=== PATIENT | female | born 1960 | race Caucasian/White ===

== ENCOUNTER 2017-05-31 11:10 | Inpatient (IN) | payer BC ==
[2017-05-31] MEDS ORDERED: ACETAMINOPHEN 325 MG TAB PO (11:30)
[2017-05-31] MEDS ORDERED: ONDANSETRON 4 MG INJ IV (11:30)
[2017-05-31 13:32] LABS: CREATINE KINASE 60 IU/L (23-200)
[2017-05-31 13:32] LABS: MAGNESIUM 1.9 mg/dl (1.7-2.5)
[2017-05-31 14:03] LABS: CK INDEX 6.5; CK-MB 3.92 ng/ml (0.0-2.4)
[2017-05-31] MEDS: LEVOFLOXACIN 500MG/D5W (PMX) 100 ML IVPB (15:00)
[2017-05-31] MEDS: metroNIDAZOLE 500 MG/NS (PMX) 100 ML IVPB (15:09)
[2017-05-31] MEDS ORDERED: DIPHENHYDRAMINE 50 MG INJ (17:43)
[2017-05-31] MEDS ORDERED: DIPHENHYDRAMINE 50 MG INJ IV (18:00)
[2017-06-01] MEDS: ALBUTEROL 0.083% (NEB) 2.5 MG/3 ML AMP HHN ×3 (12:00→19:38)
[2017-06-01] MEDS ORDERED: ALBUTEROL 0.083% (NEB) 2.5 MG/3 ML AMP HHN (12:00)
[2017-06-01] MEDS: LEVOFLOXACIN 500MG/D5W (PMX) 100 ML IVPB (13:13)
[2017-06-01 13:24] LABS: CREATINE KINASE 34 IU/L (23-200)
[2017-06-01 13:24] LABS: PHOSPHORUS 1.9 mg/dl (2.5-4.9)
[2017-06-01 13:33] LABS: CK INDEX 5.9; TROPONIN-I 0.026 ng/ml (0.00-0.12)
[2017-06-01] MEDS: metroNIDAZOLE 500 MG/NS (PMX) 100 ML IVPB ×2 (14:55→21:16)
[2017-06-01] MEDS: FUROSEMIDE 20 MG INJ IV (18:28)
[2017-06-02] MEDS: ALBUTEROL 0.083% (NEB) 2.5 MG/3 ML AMP HHN ×4 (01:24→19:31)
[2017-06-02] MEDS: metroNIDAZOLE 500 MG/NS (PMX) 100 ML IVPB ×3 (05:47→21:27)
[2017-06-02 06:08] LABS: ADD MAN DIFF? NO
[2017-06-02 06:19] LABS: BASOPHILS % 0.6 % (0.0-2.0); EOSINOPHILS # 0.1 10^3/ul (0.0-0.5); EOSINOPHILS % 1.4 % (0.0-7.0); HEMATOCRIT 38.1 % (37.0-47.0); HEMOGLOBIN 12.3 g/dl (12.0-16.0); LYMPHOCYTES % 19.8 % (15.0-51.0); MEAN CORPUSCULAR HGB CONC 32.3 g/dl (32.0-37.0); MEAN CORPUSCULAR VOLUME 89.9 fl (82.0-101.0); MEAN PLATELET VOLUME 10.6 fl (7.4-10.4); MONOCYTE # 0.4 10^3/ul (0.3-0.9); MONOCYTES % 8.9 % (0.0-11.0); NEUTROPHIL # 3.3 10^3/ul (1.6-7.5); NEUTROPHILS % 68.5 % (39.0-77.0); PLATELET COUNT 176 10^3/UL (140-415); RED BLOOD COUNT 4.24 10^6/ul (4.20-5.40); RED CELL DISTRIBUTION WIDTH 14.8 % (11.5-14.5)
[2017-06-02 06:19] LABS: WHITE BLOOD COUNT 4.9 10^3/ul (4.8-10.8)
[2017-06-02 06:45] LABS: ALANINE AMINOTRANSFERASE 48 IU/L (13-69); ALBUMIN 3.3 g/dl (3.3-4.9); ALBUMIN/GLOBULIN RATIO 1.26; ALKALINE PHOSPHATASE 158 IU/L (42-121); ANION GAP 10 (8-16); ASPARTATE AMINO TRANSFERASE 28 IU/L (15-46); BILIRUBIN,INDIRECT 0.1 mg/dl (0-1.1); BILIRUBIN,TOTAL 0.1 mg/dl (0.2-1.3); BLOOD UREA NITROGEN 11 mg/dl (7-20); CALCIUM 10.8 mg/dl (8.4-10.2); CARBON DIOXIDE 28 mmol/L (21-31); CHLORIDE 107 mmol/L (97-110); CREATININE 0.74 mg/dl (0.44-1.00); GLUCOSE 100 mg/dl (70-220); POTASSIUM 3.3 mmol/L (3.5-5.1); SODIUM 142 mmol/L (135-144); TOTAL PROTEIN 5.9 g/dl (6.1-8.1)
[2017-06-02] MEDS: LEVOFLOXACIN 500MG/D5W (PMX) 100 ML IVPB (12:06)
[2017-06-02] MEDS: POTASSIUM CHLORIDE (SR) 20 MEQ TAB PO (12:06)
[2017-06-02] MEDS ORDERED: VITAMIN A & D 5 GM OINT PACKET TOP (12:55)
[2017-06-03] MEDS ORDERED: VITAMIN A & D 5 GM OINT PACKET TOP (00:52)
[2017-06-03] MEDS: ALBUTEROL 0.083% (NEB) 2.5 MG/3 ML AMP HHN ×2 (01:38→08:00)
[2017-06-03] MEDS: metroNIDAZOLE 500 MG/NS (PMX) 100 ML IVPB ×3 (05:29→21:32)
[2017-06-03 05:46] LABS: ADD MAN DIFF? NO
[2017-06-03 05:59] LABS: WHITE BLOOD COUNT 5.3 10^3/ul (4.8-10.8)
[2017-06-03 05:59] LABS: BASOPHILS % 0.8 % (0.0-2.0); EOSINOPHILS # 0.1 10^3/ul (0.0-0.5); EOSINOPHILS % 1.5 % (0.0-7.0); HEMOGLOBIN 13.4 g/dl (12.0-16.0); LYMPHOCYTES % 19.3 % (15.0-51.0); MEAN CORPUSCULAR HEMOGLOBIN 29.3 pg (29.0-33.0); MEAN CORPUSCULAR HGB CONC 33.5 g/dl (32.0-37.0); MEAN CORPUSCULAR VOLUME 87.5 fl (82.0-101.0); MEAN PLATELET VOLUME 10.3 fl (7.4-10.4); MONOCYTE # 0.4 10^3/ul (0.3-0.9); MONOCYTES % 7.2 % (0.0-11.0); NEUTROPHIL # 3.7 10^3/ul (1.6-7.5); NEUTROPHILS % 70.3 % (39.0-77.0); PLATELET COUNT 196 10^3/UL (140-415); RED BLOOD COUNT 4.57 10^6/ul (4.20-5.40); RED CELL DISTRIBUTION WIDTH 14.8 % (11.5-14.5)
[2017-06-03 06:20] LABS: ALANINE AMINOTRANSFERASE 39 IU/L (13-69); ALBUMIN 3.4 g/dl (3.3-4.9); ALBUMIN/GLOBULIN RATIO 1.09; ALKALINE PHOSPHATASE 165 IU/L (42-121); ANION GAP 11 (8-16); ASPARTATE AMINO TRANSFERASE 21 IU/L (15-46); BILIRUBIN,INDIRECT 0.2 mg/dl (0-1.1); BILIRUBIN,TOTAL 0.2 mg/dl (0.2-1.3); BLOOD UREA NITROGEN 6 mg/dl (7-20); CALCIUM 11.5 mg/dl (8.4-10.2); CARBON DIOXIDE 25 mmol/L (21-31); CHLORIDE 109 mmol/L (97-110); CREATININE 0.68 mg/dl (0.44-1.00); GLUCOSE 99 mg/dl (70-220); POTASSIUM 3.8 mmol/L (3.5-5.1); SODIUM 141 mmol/L (135-144); TOTAL PROTEIN 6.5 g/dl (6.1-8.1)
[2017-06-03] MEDS: LEVOFLOXACIN 500MG/D5W (PMX) 100 ML IVPB (12:24)
[2017-06-04] MEDS: metroNIDAZOLE 500 MG/NS (PMX) 100 ML IVPB ×3 (05:52→22:11)
[2017-06-04] MEDS: LEVOFLOXACIN 500MG/D5W (PMX) 100 ML IVPB (12:31)
[2017-06-05] MEDS: metroNIDAZOLE 500 MG/NS (PMX) 100 ML IVPB (06:18)
[2017-06-05 06:28] LABS: ADD MAN DIFF? NO
[2017-06-05 06:34] LABS: WHITE BLOOD COUNT 5.1 10^3/ul (4.8-10.8)
[2017-06-05 06:34] LABS: BASOPHIL # 0.1 10^3/ul (0.0-0.1); EOSINOPHILS # 0.1 10^3/ul (0.0-0.5); EOSINOPHILS % 2.4 % (0.0-7.0); HEMATOCRIT 42.8 % (37.0-47.0); HEMOGLOBIN 14.3 g/dl (12.0-16.0); LYMPHOCYTES # 1.3 10^3/ul (0.8-2.9); LYMPHOCYTES % 24.7 % (15.0-51.0); MEAN CORPUSCULAR HGB CONC 33.4 g/dl (32.0-37.0); MEAN CORPUSCULAR VOLUME 86.8 fl (82.0-101.0); MEAN PLATELET VOLUME 10.3 fl (7.4-10.4); MONOCYTE # 0.4 10^3/ul (0.3-0.9); MONOCYTES % 7.9 % (0.0-11.0); NEUTROPHIL # 3.1 10^3/ul (1.6-7.5); PLATELET COUNT 224 10^3/UL (140-415); RED BLOOD COUNT 4.93 10^6/ul (4.20-5.40); RED CELL DISTRIBUTION WIDTH 14.6 % (11.5-14.5)
[2017-06-05 06:59] LABS: ALANINE AMINOTRANSFERASE 33 IU/L (13-69); ALBUMIN 3.7 g/dl (3.3-4.9); ALBUMIN/GLOBULIN RATIO 1.37; ALKALINE PHOSPHATASE 141 IU/L (42-121); ANION GAP 15 (8-16); ASPARTATE AMINO TRANSFERASE 22 IU/L (15-46); BILIRUBIN,INDIRECT 0.1 mg/dl (0-1.1); BILIRUBIN,TOTAL 0.1 mg/dl (0.2-1.3); BLOOD UREA NITROGEN 13 mg/dl (7-20); CALCIUM 11.1 mg/dl (8.4-10.2); CARBON DIOXIDE 23 mmol/L (21-31); CHLORIDE 109 mmol/L (97-110); CREATININE 0.73 mg/dl (0.44-1.00); GLUCOSE 93 mg/dl (70-220); POTASSIUM 3.6 mmol/L (3.5-5.1); SODIUM 143 mmol/L (135-144); TOTAL PROTEIN 6.4 g/dl (6.1-8.1)
[2017-06-06 17:01] LABS: PTH CALCIUM 10.8 mg/dL (8.6-10.4)
[2017-06-07 07:32] LABS: PTH INTACT 124 pg/mL (14-64)
[2017-06-08 09:13] LABS: ADD MAN DIFF? NO
[2017-06-08 09:17] LABS: WHITE BLOOD COUNT 4.5 10^3/ul (4.8-10.8)
[2017-06-08 09:17] LABS: BASOPHILS % 0.9 % (0.0-2.0); EOSINOPHILS # 0.2 10^3/ul (0.0-0.5); EOSINOPHILS % 3.8 % (0.0-7.0); HEMATOCRIT 41.6 % (37.0-47.0); HEMOGLOBIN 13.6 g/dl (12.0-16.0); LYMPHOCYTES # 1.3 10^3/ul (0.8-2.9); LYMPHOCYTES % 29.2 % (15.0-51.0); MEAN CORPUSCULAR HEMOGLOBIN 28.9 pg (29.0-33.0); MEAN CORPUSCULAR HGB CONC 32.7 g/dl (32.0-37.0); MEAN CORPUSCULAR VOLUME 88.3 fl (82.0-101.0); MEAN PLATELET VOLUME 10.2 fl (7.4-10.4); MONOCYTE # 0.4 10^3/ul (0.3-0.9); MONOCYTES % 8.9 % (0.0-11.0); NEUTROPHIL # 2.5 10^3/ul (1.6-7.5); NEUTROPHILS % 55.9 % (39.0-77.0); PLATELET COUNT 230 10^3/UL (140-415); RED BLOOD COUNT 4.71 10^6/ul (4.20-5.40); RED CELL DISTRIBUTION WIDTH 14.4 % (11.5-14.5)
[2017-06-08 09:47] LABS: PHOSPHORUS 2.6 mg/dl (2.5-4.9)
[2017-06-08 09:47] LABS: ANION GAP 13 (8-16); BLOOD UREA NITROGEN 15 mg/dl (7-20); CALCIUM 10.8 mg/dl (8.4-10.2); CARBON DIOXIDE 27 mmol/L (21-31); CHLORIDE 109 mmol/L (97-110); CREATININE 0.68 mg/dl (0.44-1.00); GLUCOSE 122 mg/dl (70-220); MAGNESIUM 2.1 mg/dl (1.7-2.5); POTASSIUM 4.6 mmol/L (3.5-5.1); SODIUM 144 mmol/L (135-144)
[2017-06-08 14:17] LABS: IONIZED CALCIUM 1.6 mmol/L (1.1-1.4)
[2017-06-08 14:51] LABS: HEPATITIS B SURFACE ANTIGEN NEGATIVE (NEGATIVE)
[2017-06-08 15:08] LABS: HEPATITIS C VIRAL ANTIBODY NEGATIVE (NEGATIVE)
[2017-06-08 15:09] LABS: HEPATITIS B SURFACE ANTIBODY NEGATIVE (NEGATIVE)
[2017-06-10] MEDS: LORAZEPAM 2 MG INJ IV (20:51)
[2017-06-11 09:48] LABS: AMPHETAMINE/METHAMPHETAMINE Negative (NEGATIVE); BARBITURATES Negative (NEGATIVE); BENZODIAZEPINES Negative (NEGATIVE); CANNABINOIDS Negative (NEGATIVE); COCAINE Negative (NEGATIVE); OPIATES Negative (NEGATIVE)
[2017-06-11] MEDS: ERGOCALCIFEROL (8000 UNITS/ML PO SYG) PO (09:57)
[2017-06-11] MEDS ORDERED: EPINEPHrine 1 MG INJ (10:18)
[2017-06-11] MEDS ORDERED: hydrALAzine 20 MG INJ IV (10:30)
[2017-06-11] MEDS ORDERED: LABETALOL HCL 20MG INJ IV (10:30)
[2017-06-11] MEDS ORDERED: METOCLOPRAMIDE 10 MG INJ IV (10:30)
[2017-06-11] MEDS ORDERED: FENTAnyl 50 MCG/ML VIAL IV ×3 (10:30)
[2017-06-11] MEDS ORDERED: OXYCODONE/ACETAMINOPHEN (5/325) TAB PO ×2 (10:30)
[2017-06-11] MEDS ORDERED: ONDANSETRON 4 MG INJ IV (10:30)
[2017-06-11] MEDS ORDERED: EPHEDrine SULFATE 50 MG/5 ML SYG IV (10:30)
[2017-06-11] MEDS ORDERED: ALBUTEROL 0.083% (NEB) 2.5 MG/3 ML AMP HHN (10:30)
[2017-06-11] MEDS ORDERED: DIPHENHYDRAMINE 50 MG INJ IV (10:30)
[2017-06-11] MEDS ORDERED: MIDAZOLAM 1 MG/ML 2 ML INJ IV (10:30)
[2017-06-11] MEDS ORDERED: MEPERIDINE 25 MG INJ IV (10:30)
[2017-06-11] MEDS ORDERED: HYDROmorphONE (0.2 MG/ML) 10ML SYG IV ×2 (10:30)
[2017-06-11] MEDS ORDERED: KETOROLAC 30 MG INJ IV (10:30)
[2017-06-11 11:00] LABS: ABNORMAL IP MESSAGE 1; HEMATOCRIT 47.9 % (37.0-47.0); HEMOGLOBIN 15.1 g/dl (12.0-16.0); MEAN CORPUSCULAR HEMOGLOBIN 28.2 pg (29.0-33.0); MEAN CORPUSCULAR HGB CONC 31.5 g/dl (32.0-37.0); MEAN CORPUSCULAR VOLUME 89.5 fl (82.0-101.0); MEAN PLATELET VOLUME 11.6 fl (7.4-10.4); RED BLOOD COUNT 5.35 10^6/ul (4.20-5.40); RED CELL DISTRIBUTION WIDTH 14.5 % (11.5-14.5)
[2017-06-11 11:00] LABS: WHITE BLOOD COUNT 5.8 10^3/ul (4.8-10.8)
[2017-06-11] MEDS ORDERED: ROCURONIUM 50 MG INJ (11:01)
[2017-06-11] MEDS ORDERED: LIDOCAINE 2% (SDV) 5 ML INJ (11:01)
[2017-06-11] MEDS ORDERED: PROPOFOL 20 ML (11:01)
[2017-06-11 11:02] LABS: ADD MAN DIFF? YES; POSITIVE DIFF @See below
[2017-06-11] MEDS: LIDOCAINE 1%/EPI 30 ML INJ (11:16)
[2017-06-11 11:19] LABS: INR 0.89; PARTIAL THROMBOPLASTIN TIME 22.7 Sec (25.0-35.0); PROTIME 12.1 Sec (11.9-14.9); PT RATIO 0.9
[2017-06-11 11:22] LABS: ANION GAP 17 (8-16); BLOOD UREA NITROGEN 16 mg/dl (7-20); CALCIUM 11.6 mg/dl (8.4-10.2); CARBON DIOXIDE 28 mmol/L (21-31); CHLORIDE 111 mmol/L (97-110); CREATININE 0.66 mg/dl (0.44-1.00); GLUCOSE 88 mg/dl (70-220); POTASSIUM 5.5 mmol/L (3.5-5.1); SODIUM 150 mmol/L (135-144)
[2017-06-11] MEDS ORDERED: ONDANSETRON 4 MG INJ (11:27)
[2017-06-11] MEDS ORDERED: DEXAMETHASONE 4 MG/ML 1 ML INJ (11:27)
[2017-06-11 11:34] LABS: BASOPHIL # 0.1 10^3/ul (0.0-0.1); EOSINOPHILS # 0.2 10^3/ul (0.0-0.5); EOSINOPHILS % 3.4 % (0.0-7.0); LYMPHOCYTES # 1.4 10^3/ul (0.8-2.9); LYMPHOCYTES % 24.4 % (15.0-51.0); MONOCYTE # 0.3 10^3/ul (0.3-0.9); MONOCYTES % 5.6 % (0.0-11.0); NEUTROPHIL # 3.8 10^3/ul (1.6-7.5); NEUTROPHILS % 64.7 % (39.0-77.0)
[2017-06-11] MEDS ORDERED: SUGAMMADEX SODIUM 200 MG/2 ML VIAL IV (11:55)
[2017-06-11] MEDS: HYDROmorphONE (0.2 MG/ML) 10ML SYG IV (12:22)
[2017-06-11 13:59] LABS: PLATELET COUNT 134 10^3/UL (140-415)
[2017-06-11 17:05] LABS: CALCIUM 11.2 mg/dl (8.4-10.2)
[2017-06-11] MEDS: HYDROCODONE/APAP (5/325) TAB PO (18:51)
[2017-06-12] MEDS: HYDROCODONE/APAP (5/325) TAB PO ×3 (00:51→21:28)
[2017-06-12 00:59] LABS: CALCIUM 10.9 mg/dl (8.4-10.2)
[2017-06-12 06:04] LABS: ADD MAN DIFF? NO
[2017-06-12 06:05] LABS: ABNORMAL IP MESSAGE 1; BASOPHILS % 0.1 % (0.0-2.0); HEMATOCRIT 41.5 % (37.0-47.0); HEMOGLOBIN 13.4 g/dl (12.0-16.0); LYMPHOCYTES # 0.5 10^3/ul (0.8-2.9); MEAN CORPUSCULAR HEMOGLOBIN 28.9 pg (29.0-33.0); MEAN CORPUSCULAR HGB CONC 32.3 g/dl (32.0-37.0); MEAN CORPUSCULAR VOLUME 89.6 fl (82.0-101.0); MEAN PLATELET VOLUME 10.3 fl (7.4-10.4); MONOCYTE # 0.2 10^3/ul (0.3-0.9); MONOCYTES % 2.8 % (0.0-11.0); NEUTROPHILS % 90.8 % (39.0-77.0); PLATELET COUNT 327 10^3/UL (140-415); RED BLOOD COUNT 4.63 10^6/ul (4.20-5.40); RED CELL DISTRIBUTION WIDTH 14.4 % (11.5-14.5)
[2017-06-12 06:05] LABS: WHITE BLOOD COUNT 7.7 10^3/ul (4.8-10.8)
[2017-06-12 06:43] LABS: POSITIVE DIFF @See below
[2017-06-12 07:05] LABS: MAGNESIUM 2.1 mg/dl (1.7-2.5); PHOSPHORUS 3.3 mg/dl (2.5-4.9)
[2017-06-12 07:15] LABS: ALANINE AMINOTRANSFERASE 35 IU/L (13-69); ALBUMIN/GLOBULIN RATIO 1.48; ALKALINE PHOSPHATASE 121 IU/L (42-121); ANION GAP 16 (8-16); ASPARTATE AMINO TRANSFERASE 42 IU/L (15-46); BILIRUBIN,INDIRECT 0.1 mg/dl (0-1.1); BILIRUBIN,TOTAL 0.1 mg/dl (0.2-1.3); BLOOD UREA NITROGEN 16 mg/dl (7-20); CARBON DIOXIDE 30 mmol/L (21-31); CHLORIDE 102 mmol/L (97-110); CREATININE 0.71 mg/dl (0.44-1.00); GLUCOSE 145 mg/dl (70-220); POTASSIUM 4.9 mmol/L (3.5-5.1); SODIUM 143 mmol/L (135-144); TOTAL PROTEIN 6.7 g/dl (6.1-8.1)
[2017-06-12 08:21] LABS: CALCIUM 11.1 mg/dl (8.4-10.2)
[2017-06-12 12:33] LABS: CALCIUM 10.7 mg/dl (8.4-10.2)
[2017-06-12] MEDS: morphine 2 MG INJ IV (14:05)
[2017-06-12] MEDS: NICOTINE (14 MG/24 HR) PATCH TRANSDERM (16:12)
[2017-06-13] MEDS: HYDROCODONE/APAP (5/325) TAB PO (07:49)
[2017-06-13] MEDS: NICOTINE (14 MG/24 HR) PATCH TRANSDERM (08:40)
[2017-06-13] MEDS ORDERED: morphine LIQ (10 MG/5 ML) CUP PO (13:53)
== END 2017-06-13 15:10 | disposition home health service (06) | DRG 981 ==
LOC: MS2 06-13 11:40 → E/R 11:10
PROVIDERS: Internal Medicine
PROC: 0GTP0ZZ Resection of Left Inferior Parathyroid Gland, Open Approach (ICD-10-PCS; principal; 2017-06-11 10:30)
DX: T40.601A Poisoning by unspecified narcotics, accidental (unintentional), initial encounter (principal); J69.0 Pneumonitis due to inhalation of food and vomit; J96.01 Acute respiratory failure with hypoxia; G92 Toxic encephalopathy; E44.0 Moderate protein-calorie malnutrition; E83.52 Hypercalcemia; M41.9 Scoliosis, unspecified; Z68.1 Body mass index [BMI] 19.9 or less, adult; F15.129 Other stimulant abuse with intoxication, unspecified; D35.1 Benign neoplasm of parathyroid gland; E21.0 Primary hyperparathyroidism; Z59.0 Homelessness; S42.002D Fracture of unspecified part of left clavicle, subsequent encounter for fracture with routine healing; X58.XXXD Exposure to other specified factors, subsequent encounter; E05.90 Thyrotoxicosis, unspecified without thyrotoxic crisis or storm; Z87.891 Personal history of nicotine dependence
CPT/HCPCS: 71045; 76536; 78070; 80048; 80053; 80307; 82306; 82310; 82330; 82550; 82553; 82652; 83735; 83970; 84100; 84484; 85025; 85610; 85730; 86706; 86708; 86803; 87340; 88307; 94640; 94664; 96365; 96366; 96368; 96375; 97161; 99285-25; J1940